=== PATIENT | female | born 1965 | race American Indian/Alaskan Native ===

== ENCOUNTER 2018-06-12 11:00 | Outpatient (CLI) | payer OTHER | END 2018-06-12 11:03 | disposition home or self-care (01) | LOC: SONOGRAMA 11:00 | DX: E04.1 Nontoxic single thyroid nodule (principal) ==

== ENCOUNTER 2019-04-10 07:50 | Outpatient (CLI) | payer OTHER | END 2019-04-10 10:08 | disposition home or self-care (01) | LOC: SONOGRAMA 07:50 | DX: E04.2 Nontoxic multinodular goiter (principal) ==